=== PATIENT | male | born 1985 | race Asian ===

== ENCOUNTER 2018-04-10 17:09 | Emergency (ER) | payer MEDICAID ==
[~2018-04-10] VITALS: Ht 180.3 cm; Wt 72.6 kg
[2018-04-10 17:27] VITALS: BP 122/69
[2018-04-10] MEDS ORDERED: DiphenhydrAMINE 50mg/ml Inj IM ONE (17:30)
[2018-04-10] MEDS ORDERED: LORazepam Inj 2mg/ml 1ml IM ONE (17:30)
[2018-04-10 18:22] LABS: BASOPHILS % (AUTO) 1.3 % (0.0-2.0); EOSINOPHILS % (AUTO) 3.3 % (0.0-3.0); HEMATOCRIT 40.1 % (42.0-52.0); HEMOGLOBIN 13.7 G/DL (14.2-18.0); LYMPHOCYTES % (AUTO) 31.6 % (20.0-45.0); MEAN CORPUSCULAR VOLUME 89 FL (80-99); MONOCYTES % (AUTO) 7.8 % (1.0-10.0); PLATELET COUNT 263 K/UL (150-450); RED BLOOD COUNT 4.51 M/UL (4.70-6.10); RED CELL DISTRIBUTION WIDTH 11.1 % (11.6-14.8); WHITE BLOOD COUNT 5.3 K/UL (4.8-10.8)
[2018-04-10 18:47] LABS: ANION GAP 8 mmol/L (5-15); BLOOD UREA NITROGEN 8 mg/dL (7-18); CALCIUM 9.3 MG/DL (8.5-10.1); CARBON DIOXIDE 27 MMOL/L (21-32); CHLORIDE 106 MMOL/L (98-107); CREATININE 0.7 MG/DL (0.55-1.30); SODIUM 141 MMOL/L (136-145)
[2018-04-10 18:51] LABS: ALANINE AMINOTRANSFERASE 16 U/L (12-78); ALBUMIN 3.9 G/DL (3.4-5.0); ALBUMIN/GLOBULIN RATIO 1.3 (1.0-2.7); ALKALINE PHOSPHATASE 74 U/L (46-116); ASPARTATE AMINO TRANSFERASE 21 U/L (15-37); BILIRUBIN,TOTAL 0.8 MG/DL (0.2-1.0)
--- NOTE | 2018-04-10 19:58 | Emergency Room Report ---
History of Present Illness General Chief Complaint: Behavioral Complaint Source: Patient (Maura Faustin) Present Illness HPI patient is a 32-year-old male with history of bipolar disorder and schizophrenia here brought in by paramedics and an [employer] in handcuffs after he tried to furniture from [facility] to the streets. Patient denies SI and HI. Patient is not cooperative and wants to handcuffs to be taken off before he speaks to the biomedical electronics technician. She is still having bipolar disorder and schizophrenia but not on any medication as he prefers to the hospital for medications and not being on a daily medication. Patient reports that the reason he started throwing furniture toward the streets indicating he was not trying to harm anyone was that he is upset with himself living the [place] The patient mentions that he wants to move to [facility] next week. patient denies taking any recreational drugs, smoking, alcohol ingestion. Denies SOB, chest pain, palpitation, headache, dizziness and all other associated symptoms (Maura Faustin) Allergies: Coded Allergies: No Known Allergies (Unverified , 04/10/18) Patient History Past Medical History: see triage record Pertinent Family History: unable to obtain Immunizations: UTD Reviewed Nursing Documentation: PMH: Agreed; PSxH: Agreed (Maura Faustin) Nursing Documentation-PMH Past Medical History: No History, Except For History Of Psychiatric Problem: Yes - bipolar. schizophrenia. (Maura Faustin) Review of Systems All Other Systems: negative except mentioned in HPI (Maura Faustin) Physical Exam Vital Signs Date Time Temp Pulse Resp B/P (MAP) Pulse Ox O2 Delivery O2 Flow Rate FiO2 04/10/18 17:04 98.4 78 16 122/69 100 Room Air Sp02 EP Interpretation: reviewed, normal General Appearance: alert, GCS 15, moderate distress, other - in handcuffs Head: normocephalic, atraumatic Eyes: bilateral eye normal inspection, bilateral eye PERRL ENT: normal ENT inspection, hearing grossly normal, normal pharynx Neck: normal inspection, full range of motion, supple Respiratory: normal inspection, lungs clear, no rhonchi, no wheezing Cardiovascular #1: normal inspection, no edema, no murmur Gastrointestinal: normal inspection, non tender, soft Rectal: deferred Genitourinary: deferred Musculoskeletal: normal inspection, back normal, digits/nails normal Neurologic: normal inspection, alert, oriented x3, responsive Psychiatric: memory normal, no suicidal/homicidal ideation, other - combative Suicide Risk Assessment: Suicidal Ideation: No Had intent to initiate attempt: No Pt's plan for suicide attempt: No Has means to complete attempt: No Skin: normal inspection, normal color, no rash, warm/dry Lymphatic: normal inspection, no adenopathy (Maura Faustin) Medical Decision Making PA Attestation all diagnosis and treatment plans were reviewed and discussed with my supervising physician Dr Micah Olvera Reassesment PT is noncombative (Maura Faustin) Diagnostic Impression: Primary Impression: Behavioral disorder Additional Impressions: Amphetamine abuse Combative behavior ER Course patient is a 32-year-old male with history of bipolar disorder and schizophrenia here brought in by paramedics and an [employer] in handcuffs after he tried to furniture from [facility] to the streets. Patient denies SI and HI. Patient is not cooperative and wants to handcuffs to be taken off before he speaks to the biomedical electronics technician. She is still having bipolar disorder and schizophrenia but not on any medication as he prefers to the hospital for medications and not being on a daily medication. Patient reports that the reason he started throwing furniture toward the streets indicating he was not trying to harm anyone was that he is upset with himself living the [facility] The patient mentions that he wants to move to [place] next week. patient denies taking any recreational drugs, smoking, alcohol ingestion. Denies SOB, chest pain, palpitation, headache, dizziness and all other associated symptoms Ddx considered but are not limited to combative behavior, schizophrenia, bipolar disorder, amphethamine abuse Vital signs: are WNL, pt. is afebrile H&PE are most consistent with amphethamine abuse, combative behavior ORDERS: CBC, CMP, UA, urine drug screen, halidol, ativan, benadryl ED INTERVENTIONS: halidol, benadryl, ativan. DISCHARGE: At this time pt. is stable for d/c to home. Will provide printed patient care instructions, and any necessary prescriptions. Care plan and follow up instructions have been discussed with the patient prior to discharge. pt on psychiatric hold positive drug screen for amphethamine (Maura Faustin) ER Course Patient signout to me. Patient was acting aggressively and was a danger to himself another. He was placed on a 5150 psychiatric hold. He's been stable over the night. He is medically clear for psychiatric evaluation. (Marco A Andrade MD) ER Course Please refer to the initial report for the history and presentation Patient was pending further psychiatric evaluation At the time of evaluation patient appears to be acting bizarre Patient is agitated requiring Ativan and Benadryl At this time patient will continue with further placement to a psychiatric facility Patient was accepted at [facility] and has been transferred for further inpatient psychiatric care (James Murray DO) Last Vital Signs Date Time Temp Pulse Resp B/P (MAP) Pulse Ox O2 Delivery O2 Flow Rate FiO2 04/10/18 17:27 98.4 16 122/69 100 Room Air 04/10/18 17:27 78 (Maura Faustin) Status: improved (Marco A Andrade MD) Status: unchanged (James Murray DO) Disposition: XFER SHT-TRM HOSP Condition: Improved Referrals: GABBY HYLTON,REFERRING (PCP) Maura Faustin Apr 10, 2018 19:58 Marco A Andrade MD Apr 11, 2018 01:10 James Murray DO Apr 11, 2018 12:37
[2018-04-10 21:52] VITALS: BP 130/74
[2018-04-11] VITALS (7 sets, daily range): BP systolic 103–133; BP diastolic 57–88
[2018-04-11] MEDS ORDERED: LORazepam Inj 2mg/ml 1ml IV ONE (12:00)
[2018-04-11] MEDS ORDERED: DiphenhydrAMINE 50mg/ml Inj IVP ONE (12:00)
[2018-04-11 16:06] LABS: APPEARANCE,URINE CLEAR; BILIRUBIN, URINE NEGATIVE (NEGATIVE); COLOR,URINE PALE YELLOW; GLUCOSE, URINE (UA) NEGATIVE (NEGATIVE); KETONES,URINE NEGATIVE (NEGATIVE); LEUKOCYTE ESTERASE ,URINE NEGATIVE (NEGATIVE); NITRITE,URINE NEGATIVE (NEGATIVE); PH,URINE 8 (4.5-8.0); PROTEIN,URINE NEGATIVE (NEGATIVE); UROBILINOGEN,URINE NORMAL MG/DL (0.0-1.0)
== END 2018-04-11 18:15 | disposition short-term general hospital (02) ==
LOC: EDBD 17:09 → EMR 17:50
DX: F91.8 Other conduct disorders (principal); F15.10 Other stimulant abuse, uncomplicated; F31.9 Bipolar disorder, unspecified; F20.9 Schizophrenia, unspecified
CPT/HCPCS: 36415; 80053; 80307; 80329; 81001; 85025; 93005; 96372; 96374; 96375; 99285; J1200